=== PATIENT | female | born 1965 | race Two or more races ===

== ENCOUNTER 2020-06-09 13:05 | Outpatient (CLI) | payer OTHER | END 2020-06-09 14:00 | disposition home or self-care (01) | LOC: OFIC 805 13:05 | PROVIDERS: ATTEND Otolaryngology | DX: L30.8 Other specified dermatitis (principal); H61.21 Impacted cerumen, right ear ==

== ENCOUNTER 2021-04-07 12:37 | Emergency (ER) | payer OTHER ==
[~2021-04-07] VITALS: Ht 167.6 cm; Wt 90.3 kg
[2021-04-07] MEDS ORDERED: FORTAMET500 MG PO (13:20)
[2021-04-07] MEDS ORDERED: LEVOTHYROXINE25 MCG (13:21)
[2021-04-07] MEDS ORDERED: SYNTHROID50 MCG PO (13:26)
[2021-04-07] MEDS ORDERED: NORFLEX100MG PO (16:54)
[2021-04-07] MEDS ORDERED: KETO10TA2 PO (16:54)
== END 2021-04-07 17:48 | disposition home or self-care (01) ==
LOC: ER 12:37
DX: S30.0XXA Contusion of lower back and pelvis, initial encounter (principal); S09.8XXA Other specified injuries of head, initial encounter; S70.01XA Contusion of right hip, initial encounter; W17.89XA Other fall from one level to another, initial encounter; Y93.89 Activity, other specified; Y92.018 Other place in single-family (private) house as the place of occurrence of the external cause; Y99.8 Other external cause status